=== PATIENT | male | born 1995 | race Two or more races ===

== ENCOUNTER 2025-06-10 20:17 | Emergency (ER) | payer BC ==
[~2025-06-10] VITALS: Ht 185.4 cm; Wt 79.7 kg
--- NOTE | 2025-06-10 20:34 | ELECTROCARDIOGRAPH REPORT ---
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
--- NOTE | 2025-06-10 20:53 | RADIOLOGY REPORT ---
CLINICAL HISTORY: CP TECHNIQUE: Single view of the chest was obtained. COMPARISON: None FINDINGS: The heart size and pulmonary vasculature are normal. The lungs are clear. IMPRESSION: NO ACUTE CARDIOPULMONARY PROCESS.
[2025-06-10 21:01] LABS: MEAN PLATELET VOLUME 9.1 FL (7.4-10.4); RED CELL DISTRIBUTION WIDTH 12.6 % (11.5-14.5)
[2025-06-10 21:22] LABS: CREATININE 1.11 MG/DL (0.60-1.10); PRO BRAIN NATRIURETIC PEPTIDE < 30 PG/ML (0-125); TOTAL CARBON DIOXIDE 28.8 MMOL/L (24-32); eCRCL 110 ML/MIN; eGFR 78 ML/MIN
[2025-06-10] MEDS ORDERED: ACET15SO14 RIGHT EAR (22:02)
[2025-06-10] MEDS ORDERED: AMOX500C2 PO (22:02)
--- NOTE | 2025-06-10 22:02 | Physician Documentation ---
History of Present Illness ~ Chief Complaint: Dizziness Stated Complaint: SEE CHIEF COMPLAINT Time Seen by MD: 21:38 HPI Very pleasant 29-year-old male presents with intermittent dizziness and right ear pain for the last several days. Denies any history of cardiac problems denies any weakness or focal deficits. He has any fevers but reports ear pressure and pain Medication Reconciliation Allergies: Coded Allergies: No Known Allergies (Unverified , 06/10/25) Scheduled Acetic Acid (Acetic Acid), 4 DROP RIGHT EAR Q12H Amoxicillin Trihydrate* (Amoxicillin*), 1 CAP PO Q8H Review of Systems All Other Systems at this time: Reviewed and Negative ROS As stated above in the HPI, otherwise all systems are reviewed and negative. Physical Exam Vital Signs: Temperature: 98.2, Heart Rate: 104, Respiratory Rate: 16, BP: 140/79, Pulse Oximetry: 98, Weight: 79.700 Oxygen Flow Rate: 0 Physical Exam General: Alert, no apparent distress. HEENT: PERRL, EOMI, no injection, moist mucous membranes. rednness in right exteranl auditory canal w/ dull tympanic membrane Neck: Full range of motion. Respiratory: Lungs clear, no respiratory distress. Psychiatric: Normal mood and affect. Skin: Normal color, warm and dry. No edema, no ecchymosis. Progress Results/Orders Results/Orders Vital Signs 06/10/25 20:19 Temp 98.2 Pulse 104 Resp 16 B/P (MAP) 140/79 Pulse Ox 98 O2 Flow Rate 0 Laboratory Tests Test 06/10/25 20:54 06/10/25 22:32 White Blood Count 5.6 Red Blood Count 5.26 Hemoglobin 16.1 Hematocrit 47.1 Mean Corpuscular Volume 89.4 Mean Corpuscular Hemoglobin 30.7 Mean Corpuscular Hemoglobin Concent 34.3 Red Cell Distribution Width 12.6 Platelet Count 201 Mean Platelet Volume 9.1 Neutrophils (%) (Auto) 68.8 Lymphocytes (%) (Auto) 21.1 Monocytes (%) (Auto) 7.5 Eosinophils (%) (Auto) 1.6 Basophils (%) (Auto) 1.0 Neutrophils # (Auto) 3.8 Lymphocytes # (Auto) 1.2 Monocytes # (Auto) 0.4 Eosinophils # (Auto) 0.1 Basophils # (Auto) 0.1 CBC Comment Sodium Level 141 Potassium Level 4.3 Chloride Level 104 Carbon Dioxide Level 28.8 Anion Gap 8 Blood Urea Nitrogen 16 Creatinine 1.11 H Estimated GFR/1.73 m2 78 BUN/Creatinine Ratio 14.4 Glucose Level 119 H Calcium Level 9.2 Troponin I High Sensitivity 4 5 Pro-B-Type Natriuretic Peptide < 30 Albumin 4.5 Chemistry Comments Troponin I High Sens Percent Delta 25 Troponin I Hi Sens Absolute Change 1 Medical Decision Making Findings This patient's laboratory values and EKG are unremarkable for cardiac events or infectious processes. I do however suspect otitis media and otitis externa which I will treat for both. This would attribute to the intermittent dizziness and ear pain. Differential Dx:Considerations: Include: anemia, CVA, dehydration, dysrhythmia, electrolyte imbalance, encephalopathy, Guillain-Otway, hypoglycemia, hypotension, hypovolemia, labyrinthitis, Meniere's disease, myasathenia gravis, myocardial infarction, pulmonary embolus, renal failure, respiratory failure, TIA, VBI, vertigo central, vertigo peripheral, vestibular neuronitis, other Departure Disposition: 01 HOME / SELF CARE / HOMELESS Impression: Primary Impression: Dizziness Additional Impressions: Otitis externa Otitis media of both ears Discharge Instructions: Otitis Media, Adult, [id number] Referrals: NO PRIMARY CARE PROVIDER (PCP) Prescriptions Amoxicillin Trihydrate* (Amoxicillin*) 500 Mg Capsule 1 CAP PO Q8H for 10 Days, #30 CAP Prov: MILTON TAMAYO NP 06/10/25 Acetic Acid (Acetic Acid) 2 % Solution 4 DROP RIGHT EAR Q12H for 7 Days, #15 ML 0 Refills Prov: MILTON TAMAYO NP 06/10/25 Education Educated: Patient Educated regarding: diagnosis Signature Scribe Signature: f Attestation: Scribed for Milton Tamayo Window Decorator by Milton Andres NP . 06/10/25 23:38 MILTON TAMAYO NP Jun 10, 2025 22:02
[2025-06-10 23:58] VITALS: BP 115/81; PULSE 83; RESP 16; TEMP 97.8; O2SAT 100
== END 2025-06-11 00:01 | disposition home or self-care (01) ==
LOC: ER 20:19
DX: R42 Dizziness and giddiness (principal); H60.91 Unspecified otitis externa, right ear; H66.93 Otitis media, unspecified, bilateral; R06.02 Shortness of breath
CPT/HCPCS: 36415; 71045; 80048; 83880; 84484; 85025; 93005; 99285